=== PATIENT | male | born 1995 | race American Indian/Alaskan Native ===

== ENCOUNTER → 2016-11-06 | Outpatient (CLI) | payer OTHER ==
--- NOTE | 2016-11-06 16:21 | CR ---
EXAMINATION: Left knee HISTORY: Fall COMPARISON: None TECHNIQUE: 3 views FINDINGS/IMPRESSION: There is no acute osseous abnormality, dislocation, or fracture identified. Bon e mineralization and joint spaces appear normal. Noted joint effusion or soft tissue swelling.
--- NOTE | 2016-11-07 10:20 | CR ---
EXAMINATION: Left foot and left ankle HISTORY: Fall COMPARISON: 09/12/2016 TECHNIQUE: 2 views of the left ankle and 3 views of the left foot FINDINGS: There is no acute osseous subglottic, dislocation, or fracture identified. Bone mineraliza tion and joint spaces appear preserved. Mild soft tissue swelling is noted over the lateral malleolu s. Ankle mortise and talar dome appear intact. IMPRESSION: Soft tissue swelling without an acute osseous abnormality.
== END ==
LOC: MW.CHRC 15:38
PROVIDERS: ATTEND Family Medicine
DX: W19.XXXA Unspecified fall, initial encounter (principal); M79.89 Other specified soft tissue disorders
CPT/HCPCS: 73562-26-LT; 73562-LT; 73600-26-LT; 73600-LT; 73630-26-LT; 73630-LT

== ENCOUNTER → 2016-12-23 | Outpatient (CLI) | payer OTHER ==
--- NOTE | 2016-12-23 17:22 | CR ---
EXAMINATION: Left knee HISTORY: Injury COMPARISON: 11/06/2016 TECHNIQUE: 3 views FINDINGS/IMPRESSION: There is no acute osseous abnormality, dislocation, or fracture identified. Bon e mineralization and joint spaces appear normal. No soft tissue swelling or joint effusion.
--- NOTE | 2016-12-24 08:55 | CR ---
EXAMINATION: Left ankle HISTORY: Injury COMPARISON: 11/20/2016 TECHNIQUE: 3 views FINDINGS/IMPRESSION: Again noted is a tiny ossific density along the posterior aspect of the talus, possibly a small avulsion injury. Subchondral cystic changes noted within the anterior aspect of the tibial plafond. Otherwise the visualized osseous structures appear preserved.
== END ==
LOC: MW.CHRC 13:34
PROVIDERS: ATTEND Family Medicine
DX: T14.90 Injury, unspecified (principal); M89.8X7 Other specified disorders of bone, ankle and foot
CPT/HCPCS: 73562-26-LT; 73562-LT; 73610-26-LT; 73610-LT

== ENCOUNTER 2016-12-27 11:03 | Emergency (ER) | payer OTHER ==
[2016-12-27 11:25] VITALS: BP 141/94
--- NOTE | 2016-12-27 11:58 | EDM.PDOC ---
ED HPI GENERAL MEDICAL PROBLEM - General Chief Complaint: Lower Extremity Injury/Pain Stated Complaint: RIGHT FOOT PAIN Time Seen by Provider: 12/27/16 11:15 Source of Information: Reports: Patient History Limitations: Reports: No Limitations - History of Present Illness INITIAL COMMENTS - FREE TEXT/NARRATIVE: HISTORY AND PHYSICAL: History of present illness: [Patient is well known to this emergency room. He requests a left ankle brace. He states that he has a chip fracture identified on x-ray by Dr. Calhoun earlier this week. He has been wearing an Freeman wrap and engaging in normal activities. He has not been taking it easy or elevating or resting his leg. He said he just took a load of garbage to the local landfill with his landlord and he is now having increased pain. Has pain to his left posterior lateral malleolus with some burning up into his lower leg. Chart review shows numerous ER visits in 2017 for L ankle pain. ] Review of systems: As per history of present illness and below otherwise all systems reviewed and negative. Past medical history: As per history of present illness and as reviewed below otherwise noncontributory. Surgical history: As per history of present illness and as reviewed below otherwise noncontributory. Social history: No reported history of drug or alcohol abuse. Family history: As per history of present illness and as reviewed below otherwise noncontributory. Physical exam: HEENT: Atraumatic, normocephalic. Extremities: Atraumatic in appearance. Pedal pulses are 2+. No ecchymosis or edema noted. negative for cords or calf pain. Neurovascular unremarkable. Neuro: Awake, alert, oriented. Motor and sensory unremarkable throughout. Exam nonfocal. Diagnostics: [L ankle x-ray] Impression: [L ankle pain] Plan: [Pt requests medication for pain. He is offered Tylenol, which he agrees to. Examiner returns to the exam room to give x-ray results and discuss treatment plan, patient has left the ER. ] Definitive disposition and diagnosis as appropriate pending reevaluation and review of above. left foot Pain Score (Numeric/FACES): 7 - Related Data Allergies Allergy/AdvReac Type Severity Reaction Status Date / Time ibuprofen Allergy Hives Verified 12/27/16 11:12 ketorolac [From Toradol] Allergy Difficulty Verified 12/27/16 11:12 Breathing ketorolac tromethamine Allergy Shortness Verified 12/27/16 11:12 [From Toradol] of Breath Home Meds: Home Meds traMADol [Ultram] 1 tab PO TID 12/27/16 [History] Past Medical History - Past Health History Medical/Surgical History: Denies Medical/Surgical History HEENT History: Reports: None Cardiovascular History: Reports: None Respiratory History: Reports: None Gastrointestinal History: Reports: None Genitourinary History: Reports: None Musculoskeletal History: Reports: None Other Musculoskeletal History: fibula fracture,left Neurological History: Reports: None Psychiatric History: Reports: None Endocrine/Metabolic History: Reports: None Hematologic History: Reports: None Immunologic History: Reports: None Oncologic (Cancer) History: Reports: None Dermatologic History: Reports: None - Infectious Disease History Infectious Disease History: Reports: None - Past Surgical History HEENT Surgical History: Reports: None, Oral Surgery Social & Family History - Family History Family Medical History: Noncontributory - Tobacco Use Smoking Status *Q: Current Every Day Smoker Years of Tobacco use: 4 Packs/Tins Daily: 1 Second Hand Smoke Exposure: No - Caffeine Use Caffeine Use: Reports: Coffee Caffeine Use Comment: 2drinks/day - Alcohol Use Days Per Week of Alcohol Use: 0 - Recreational Drug Use Recreational Drug Use: No Review of Systems - Review of Systems Review Of Systems: ROS reveals no pertinent complaints other than HPI. Trauma Exam - Physical Exam Exam: See Below Course - Vital Signs Last Recorded V/S: Last Vital Signs Temp 98 F 12/27/16 11:13 Pulse 89 12/27/16 11:13 Resp 16 12/27/16 11:13 BP 141/94 H 12/27/16 11:13 Pulse Ox 98 12/27/16 11:13 - Orders/Labs/Meds Orders: Active Orders 24 hr Category Date Time Status Ankle Min 3V Lt [CR] Stat Exams 12/27/16 11:20 Taken Meds: Medications Discontinued Medications Generic Name Dose Route Start Last Admin Trade Name Freq PRN Reason Stop Dose Admin Acetaminophen 650 mg 12/27/16 12:04 Tylenol PO 12/27/16 12:05 NOW ONE Departure - Departure Time of Disposition: 12:15 Disposition: Eloped 07 Clinical Impression: Left ankle pain Qualifiers: Chronicity: unspecified Qualified Code(s): M25.572 - Pain in left ankle and joints of left foot - Discharge Information Forms: ED Department Discharge - My Orders Last 24 Hours: My Active Orders 12/27/16 11:20 Ankle Min 3V Lt [CR] Stat - Assessment/Plan Last 24 Hours: My Active Orders 12/27/16 11:20 Ankle Min 3V Lt [CR] Stat
[2016-12-27] MEDS ORDERED: Acetaminophen 325 MG Tab PO ONE (12:04)
--- NOTE | 2016-12-29 14:50 | CR ---
EXAM DATE: 12/27/16 PATIENT'S AGE: 21 Patient: LINDA COTA Facility: [place], [place] Site . Site : 1995 Study: XRay Extremity Left ankle [id number]/13/2017 11:41:30 AM Ordering Physician: Doctor Calderon Final Report: HISTORY: Left ankle pain. TECHNIQUE: Three views of the left ankle. COMPARISON: 12/23/2016. FINDINGS: There is no acute fracture. Ankle mortise is symmetric. Joint spaces are maintained. No malalignment. No radiopaque foreign body or abnormal soft tissue gas. IMPRESSION: No acute fracture or malalignment. Dictated by Matry Encarnacion MD @ 12/27/2016 12:05:02 PM Dictated by: Marty Encarnacion MD @ 12/27/2016 12:05:09 (Electronic Signature) Report Signed by Proxy. SUKI
== END 2016-12-27 12:16 | disposition left against medical advice (07) ==
LOC: MW.ED 11:03
DX: M25.572 Pain in left ankle and joints of left foot (principal); F17.210 Nicotine dependence, cigarettes, uncomplicated; Z88.6 Allergy status to analgesic agent
CPT/HCPCS: 73610-26-LT; 73610-LT; 99282; 99283

== ENCOUNTER → 2017-01-01 | Outpatient (CLI) | payer OTHER ==
--- NOTE | 2017-01-02 08:57 | MR ---
EXAMINATION: MRI of the left ankle HISTORY: Pain COMPARISON: Radiographs dated 12/27/2016 TECHNIQUE: Multiplanar and multisequence images obtained through the left ankle without contrast. FINDINGS: The Achilles tendon appears normal in configuration. The anterior talofibular ligament sylvia ears thickened and indistinct without notable surrounding edema. The posterior talofibular and tibio fibular ligaments are intact. Anterior tibiofibular and calcaneofibular ligaments are also preserved . The peroneus brevis and longus tendons appear normal. The remaining flexor and extensor tendons si gnal characteristics are normal. No there is mild subchondral edema within the medial malleolus roland g the tibiotalar articular surface. The subtalar joint appears normal. Otherwise remaining bone toña ow signal characteristics are normal. IMPRESSION: 1. The anterior talofibular ligament is indistinct, without surrounding edema, likely an old injury. 2. Mild subchondral edema within the medial malleolus.
== END ==
LOC: MW.MRI 14:10
PROVIDERS: ATTEND Family Medicine
DX: M25.572 Pain in left ankle and joints of left foot (principal); R60.9 Edema, unspecified
CPT/HCPCS: 73721-26-LT; 73721-LT

== ENCOUNTER 2018-01-20 15:11 | Emergency (ER) | payer OTHER ==
[2018-01-20 15:45] VITALS: BP 154/101
[2018-01-20] MEDS ORDERED: Ondansetron 4 MG Tab.DIS PO ONE (16:15)
--- NOTE | 2018-01-20 16:20 | EDM.PDOC ---
ED HPI GENERAL MEDICAL PROBLEM - General Chief Complaint: Fever Stated Complaint: KNEE PAIN/FEVER Time Seen by Provider: 01/20/18 16:05 Source of Information: Reports: Patient History Limitations: Reports: No Limitations - History of Present Illness INITIAL COMMENTS - FREE TEXT/NARRATIVE: HISTORY AND PHYSICAL: History of present illness: [Pt comes to the emergency room complaining of right knee pain and swelling. States that he was standing on a ladder yesterday when his leg slipped, causing him to hit his right medina against the rung of the ladder and hit his right knee against the wall. He is complaining of increased pain, redness and swelling to his right knee as well as a laceration to his right anterior medina. He has not taken any medication for his symptoms. Has had increased pain that is unrelieved tramadol. He denies fever and chills, chest pain shortness of breath and difficulty breathing. Denies abdominal pain. Has one episode of emesis in the emergency room and complains of mild nausea. No calf pain. No pain to his right ankle or foot. Follows regularly with podiatry for tendon injury to left ankle. He has no other complaints or concerns at this time. ] Review of systems: As per history of present illness and below otherwise all systems reviewed and negative. Past medical history: As per history of present illness and as reviewed below otherwise noncontributory. Surgical history: As per history of present illness and as reviewed below otherwise noncontributory. Social history: No reported history of drug or alcohol abuse. Family history: As per history of present illness and as reviewed below otherwise noncontributory. Physical exam: HEENT: Atraumatic, normocephalic. Oral mucous membranes are pink and moist. Lungs: Clear to auscultation, breath sounds equal bilaterally. Heart: S1S2, regular, negative for clicks, rubs, or JVD. Extremities: Right knee appears mildly swollen and enlarged when compared with the left. Area of warmth and redness to superior patella of right knee. No calf pain with palpation. No calf or ankle pain is appreciated. 3 cm superficial abrasion to right anterior lower leg with mild surrounding erythema. No swelling to the lower leg. Left leg appears atraumatic other than left ankle brace. Neurovascular unremarkable. Neuro: Awake, alert, oriented. Motor and sensory unremarkable throughout. Exam nonfocal. Psych: Is alert and oriented, makes good eye contact. He appears anxious throughout examination. Diagnostics: [CBC, CMP, sedimentation rate, right knee x-ray] Therapeutics: [Zofran 4 mg by mouth] Impression: [Cellulitis right knee] Plan: [Discussed with patient that his right knee x-ray shows no abnormalities. White blood cell count is mildly elevated at 14.7, ESR is 1. CMP is unremarkable. Rx written for cephalexin 500 mg (#40) si by mouth 4 times daily until all taken , 0 refills, hydrocodone 5/325 mg take one by mouth every 6-8 hours as needed for pain 0 refills. Follow-up with PCP, strict return precautions reviewed. He is in agreement with today's plan.] Definitive disposition and diagnosis as appropriate pending reevaluation and review of above. right knee Pain Score (Numeric/FACES): 7 - Related Data Allergies Allergy/AdvReac Type Severity Reaction Status Date / Time ibuprofen Allergy Hives Verified 01/20/18 15:33 ketorolac [From Toradol] Allergy Difficulty Verified 01/20/18 15:33 Breathing ketorolac tromethamine Allergy Shortness Verified 01/20/18 15:33 [From Toradol] of Breath Home Meds: Home Meds Gabapentin [Gralise] 600 mg PO BID 01/20/18 [History] traMADol HCl [Tramadol HCl] 150 mg PO BID 01/20/18 [History] Past Medical History - Past Health History Medical/Surgical History: Denies Medical/Surgical History HEENT History: Reports: None Cardiovascular History: Reports: None Respiratory History: Reports: None Gastrointestinal History: Reports: None Genitourinary History: Reports: None Musculoskeletal History: Reports: None, Back Pain, Chronic Other Musculoskeletal History: fibula fracture,left Neurological History: Reports: None Psychiatric History: Reports: None Endocrine/Metabolic History: Reports: None Hematologic History: Reports: None Immunologic History: Reports: None Oncologic (Cancer) History: Reports: None Dermatologic History: Reports: None - Infectious Disease History Infectious Disease History: Reports: None - Past Surgical History HEENT Surgical History: Reports: None, Oral Surgery Musculoskeletal Surgical History: Reports: Other (See Below) Other Musculoskeletal Surgeries/Procedures:: ankle surgery Social & Family History - Family History Family Medical History: Noncontributory - Tobacco Use Smoking Status *Q: Light Tobacco Smoker Years of Tobacco use: 5 Packs/Tins Daily: 0.1 - Caffeine Use Caffeine Use: Reports: Coffee Caffeine Use Comment: 2drinks/day - Recreational Drug Use Recreational Drug Use: No ED ROS GENERAL - Review of Systems Review Of Systems: ROS reveals no pertinent complaints other than HPI. ED EXAM, SEPSIS - Physical Exam Exam: See Below Course - Vital Signs Last Recorded V/S: Last Vital Signs Temp 100.2 F 01/20/18 15:34 Pulse 98 01/20/18 15:34 Resp 18 01/20/18 15:34 BP 154/101 H 01/20/18 15:34 Pulse Ox 95 01/20/18 15:34 - Orders/Labs/Meds Orders: Active Orders 24 hr Category Date Time Status Knee 3V Rt [CR] Stat Exams 01/20/18 16:14 Taken CULTURE BLOOD [BC] Stat Lab 01/20/18 17:03 Received CULTURE BLOOD [BC] Stat Lab 01/20/18 17:15 Received Blood Culture x2 Reflex Set [OM.PC] Stat Oth 01/20/18 16:50 Ordered Labs: Laboratory Tests 01/20/18 01/20/18 Range/Units 16:22 16:22 WBC 14.74 H (4.0-11.0) K/uL RBC 5.14 (4.50-5.90) M/uL Hgb 15.6 (13.0-17.0) g/dL Hct 45.4 (38.0-50.0) % MCV 88.3 (80.0-98.0) fL MCH 30.4 (27.0-32.0) pg MCHC 34.4 (31.0-37.0) g/dL RDW Std Deviation 41.9 (28.0-62.0) fl RDW Coeff of Ofelia 13 (11.0-15.0) % Plt Count 341 (150-400) K/uL MPV 9.50 (7.40-12.00) fL Neut % (Auto) 71.2 (48.0-80.0) % Lymph % (Auto) 18.9 (16.0-40.0) % [place] % (Auto) 9.5 (0.0-15.0) % Eos % (Auto) 0.3 (0.0-7.0) % Baso % (Auto) 0.1 (0.0-1.5) % Neut # (Auto) 10.5 H (1.4-5.7) K/uL Lymph # (Auto) 2.8 H (0.6-2.4) K/uL [place] # (Auto) 1.4 H (0.0-0.8) K/uL Eos # (Auto) 0.1 (0.0-0.7) K/uL Baso # (Auto) 0.0 (0.0-0.1) K/uL Nucleated RBC % 0.0 /100WBC Nucleated RBCs # 0 K/uL ESR 1 (0-14) mm/hr Sodium 138 (136-148) mmol/L Potassium 3.6 (3.5-5.1) mmol/L Chloride 102 (98-107) mmol/L Carbon Dioxide 24.9 (21.0-32.0) mmol/L BUN 12 (7.0-18.0) mg/dL Creatinine 1.2 (0.8-1.3) mg/dL Est Cr Clr Drug Dosing 101.97 mL/min Estimated GFR (MDRD) > 60.0 ml/min Glucose 112 H (74-106) mg/dL Calcium 8.9 (8.5-10.1) mg/dL Total Bilirubin 0.3 (0.2-1.0) mg/dL AST 19 (15-37) IU/L ALT 56 (14-63) IU/L Alkaline Phosphatase 107 (46-116) U/L Total Protein 8.0 (6.4-8.2) g/dL Albumin 4.4 (3.4-5.0) g/dL Globulin 3.6 H (2.0-3.5) g/dL Albumin/Globulin Ratio 1.2 L (1.3-2.8) Meds: Medications Discontinued Medications Generic Name Dose Route Start Last Admin Trade Name Freq PRN Reason Stop Dose Admin Ondansetron HCl 4 mg 01/20/18 16:15 01/20/18 16:27 Zofran Odt PO 01/20/18 16:16 4 mg ONETIME ONE Administration Departure - Departure Time of Disposition: 17:40 Disposition: Home, Self-Care 01 Condition: Good Clinical Impression: Cellulitis - Discharge Information Referrals: Ancelmo Astudillo MD [Primary Care Provider] - Forms: ED Department Discharge Additional Instructions: The following information is given to patients seen in the emergency department who are being discharged to home. This information is to outline your options for follow-up care. We provide all patients seen in our emergency department with a follow-up referral. The need for follow-up, as well as the timing and circumstances, are variable depending upon the specifics of your emergency department visit. If you don't have a primary care physician on staff, we will provide you with a referral. We always advise you to contact your personal physician following an emergency department visit to inform them of the circumstance of the visit and for follow-up with them and/or the need for any referrals to a consulting specialist. The emergency department will also refer you to a specialist when appropriate. This referral assures that you have the opportunity for follow-up care with a specialist. All of these measure are taken in an effort to provide you with optimal care, which includes your follow-up. Under all circumstances we always encourage you to contact your private physician who remains a resource for coordinating your care. When calling for follow-up care, please make the office aware that this follow-up is from your recent emergency room visit. If for any reason you are refused follow-up, please contact the [facility] emergency department at and asked to speak to the emergency department charge nurse. [facility] [address] [place] [id number] Follow-up with your local primary care provider at the clinic listed above in 48 -72 hours. Take Antibiotics as prescribed. Return to ER as needed as discussed. - My Orders Last 24 Hours: My Active Orders 01/20/18 16:14 Knee 3V Rt [CR] Stat 01/20/18 16:50 Blood Culture x2 Reflex Set [OM.PC] Stat 01/20/18 17:03 CULTURE BLOOD [BC] Stat 01/20/18 17:15 CULTURE BLOOD [BC] Stat - Assessment/Plan Last 24 Hours: My Active Orders 01/20/18 16:14 Knee 3V Rt [CR] Stat 01/20/18 16:50 Blood Culture x2 Reflex Set [OM.PC] Stat 01/20/18 17:03 CULTURE BLOOD [BC] Stat 01/20/18 17:15 CULTURE BLOOD [BC] Stat
[2018-01-20 17:20] LABS: CHLORIDE,CL 102 mmol/L (98-107); SODIUM,NA 138 mmol/L (136-148)
--- NOTE | 2018-01-21 09:02 | CR ---
EXAM DATE: 01/20/18 PATIENT'S AGE: 22 Patient: LINDA COTA Facility: [place], [place] Site . Site : 1995 Study: XRay Knee Right [id number] 4:38:47 PM Ordering Physician: Doctor Calderon Final Report: Indication: Pain Technique: Three views right knee Comparison: December 25, 2017 Findings: Bones: Alignment is normal. No fractures or bone lesions. Joint spaces: Unremarkable. Soft tissues: Unremarkable. Impression: Negative. Dictated by Fatimah Cruz MD @ Jan 20 2018 4:52PM (Electronic Signature) Report Signed by Proxy. SUKI
== END 2018-01-20 18:37 | disposition home or self-care (01) ==
LOC: MW.ED 15:11
DX: S80.811A Abrasion, right lower leg, initial encounter (principal); L03.115 Cellulitis of right lower limb; Z88.6 Allergy status to analgesic agent; Z88.5 Allergy status to narcotic agent; Z79.899 Other long term (current) drug therapy; F17.210 Nicotine dependence, cigarettes, uncomplicated; W11.XXXA Fall on and from ladder, initial encounter
CPT/HCPCS: 36415; 73562; 80053; 85025; 85652; 87040; 99283; A9270

== ENCOUNTER 2018-02-06 21:00 | Emergency (ER) | payer OTHER ==
--- NOTE | 2018-02-06 21:21 | EDM.PDOC ---
ED HPI GENERAL MEDICAL PROBLEM - General Chief Complaint: Lower Extremity Injury/Pain Stated Complaint: SLIPPED DOWN Time Seen by Provider: 02/06/18 21:10 - History of Present Illness INITIAL COMMENTS - FREE TEXT/NARRATIVE: HISTORY AND PHYSICAL: History of present illness: The patient is a 22-year-old male who has a history of left ankle surgery in November at in [place] for some tendon injury and presents with complaints of pain to his left ankle after he rolled it approximately 3-1/2 hours ago. The patient said he was in his usual state of good health with no systemic complaints when this occurred. He said that when he rolled that he did not fall to the ground hitting his head or pass out and has no head neck or back pain and no proximal left leg knee hip or thigh pain. The patient took Tylenol only as he has an allergy to ibuprofen. The patient has no numbness weakness in the foot and has no discrete foot or toe pain. The patient tells me that he had a surgery at in [place] and for follow-up has been going there and has not connected with any of our subspecialist here. He does follow in our family practice clinic Review of systems: As per history of present illness and below otherwise all systems reviewed and negative. Past medical history: As per history of present illness and as reviewed below otherwise noncontributory. Surgical history: As per history of present illness and as reviewed below otherwise noncontributory. Social history: No reported history of drug or alcohol abuse. Family history: As per history of present illness and as reviewed below otherwise noncontributory. Physical exam: General: Well-developed well-nourished overweight male who is nontoxic and vital signs are noted by me HEENT: Atraumatic, normocephalic, negative for conjunctival pallor or scleral icterus, mucous membranes moist, throat clear, neck supple, nontender, trachea midline. Lungs: Clear to auscultation, breath sounds equal bilaterally, chest nontender. Heart: S1S2, regular rate and rhythm no overt murmurs Abdomen: Soft, nondistended, nontender. NABS Pelvis: Stable nontender. No lateral hip tenderness on the left Genitourinary: Deferred. Rectal: Deferred. Extremities: Atraumatic appearing with full range of motion of all extremities with the exception of the left ankle where there is some diffuse soft tissue swelling and tenderness at the lateral aspect of the ankle. There is no metatarsal tenderness no tenderness of the talus or the calcaneus and no distal tenderness to the toes. Pulses are intact and cap refill is normal. There is no proximal tib-fib tenderness knee tenderness thigh or hip tenderness or deformities. The legs are, negative for cords or calf pain. Neurovascular unremarkable. Neuro: Awake, alert, oriented. Cranial nerves II through XII unremarkable. Cerebellum unremarkable. Motor and sensory unremarkable throughout. Exam nonfocal. The patient can dorsi and plantar flex the foot Diagnostics: X-ray left ankle Therapeutics: Patient tells me he does have a Cam boot and crutches at home I've advised the patient to use his Cam boot and crutches until he can be followed up in our clinic. I will give him [facility] for some tramadol for pain as he cannot take NSAIDs. I will advise him to call the clinic and schedule follow-up appointment Impression: Left ankle injury/sprain, with history of prior surgery Definitive disposition and diagnosis as appropriate pending reevaluation and review of above. left ankle Pain Score (Numeric/FACES): 7 - Related Data Allergies Allergy/AdvReac Type Severity Reaction Status Date / Time ibuprofen Allergy Hives Verified 02/06/18 21:08 ketorolac [From Toradol] Allergy Difficulty Verified 02/06/18 21:08 Breathing ketorolac tromethamine Allergy Shortness Verified 02/06/18 21:08 [From Toradol] of Breath Home Meds: Home Meds Gabapentin [Gralise] 600 mg PO BID 01/20/18 [History] Past Medical History - Past Health History Medical/Surgical History: Denies Medical/Surgical History HEENT History: Reports: None Cardiovascular History: Reports: None Respiratory History: Reports: None Gastrointestinal History: Reports: None Genitourinary History: Reports: None Musculoskeletal History: Reports: None, Back Pain, Chronic Other Musculoskeletal History: fibula fracture,left Neurological History: Reports: None Psychiatric History: Reports: None Endocrine/Metabolic History: Reports: None Hematologic History: Reports: None Immunologic History: Reports: None Oncologic (Cancer) History: Reports: None Dermatologic History: Reports: None - Infectious Disease History Infectious Disease History: Reports: None - Past Surgical History HEENT Surgical History: Reports: Oral Surgery Musculoskeletal Surgical History: Reports: Other (See Below) Other Musculoskeletal Surgeries/Procedures:: ankle surgery Social & Family History - Family History Family Medical History: Noncontributory - Tobacco Use Smoking Status *Q: Current Every Day Smoker Years of Tobacco use: 4 Packs/Tins Daily: 0.3 - Caffeine Use Caffeine Use: Reports: Coffee Caffeine Use Comment: 2drinks/day - Recreational Drug Use Recreational Drug Use: No Review of Systems - Review of Systems Review Of Systems: ROS reveals no pertinent complaints other than HPI. ED EXAM, GENERAL - Physical Exam Exam: See Below (See dictation) Course - Vital Signs Last Recorded V/S: Last Vital Signs Temp 37.2 C 02/06/18 21:09 Pulse 102 H 02/06/18 21:09 Resp 18 02/06/18 21:09 BP 154/101 H 02/06/18 21:09 Pulse Ox 96 02/06/18 21:09 - Orders/Labs/Meds Orders: Active Orders 24 hr Category Date Time Status Ankle Min 3V Lt [CR] Stat Exams 02/06/18 21:17 Taken Departure - Departure Time of Disposition: 22:56 Disposition: Home, Self-Care 01 Condition: Good Clinical Impression: Injury of left ankle Qualifiers: Encounter type: subsequent encounter Qualified Code(s): S99.912D - Unspecified injury of left ankle, subsequent encounter - Discharge Information Referrals: PCP,None [Primary Care Provider] - Forms: ED Department Discharge Additional Instructions: The following information is given to patients seen in the emergency department who are being discharged to home. This information is to outline your options for follow-up care. We provide all patients seen in our emergency department with a follow-up referral. The need for follow-up, as well as the timing and circumstances, are variable depending upon the specifics of your emergency department visit. If you don't have a primary care physician on staff, we will provide you with a referral. We always advise you to contact your personal physician following an emergency department visit to inform them of the circumstance of the visit and for follow-up with them and/or the need for any referrals to a consulting specialist. The emergency department will also refer you to a specialist when appropriate. This referral assures that you have the opportunity for followup care with a specialist. All of these measure are taken in an effort to provide you with optimal care, which includes your followup. Under all circumstances we always encourage you to contact your private physician who remains a resource for coordinating your care. When calling for followup care, please make the office aware that this follow-up is from your recent emergency room visit. If for any reason you are refused follow-up, please contact the [facility] emergency department at and ask to speak to the emergency department charge nurse. [facility]--Orthopedic clinic Professional Building [address] [place] [address] [address] [place] [address] [facility]- Internal Medicine and [facility] [address] [place] [id number] Ice and elevate the area as much as possible and wear your cam walking boot and use crutches at all times until you're followed up in the clinic. Please call and follow up in orthopedic clinic or with your provider at [facility] in [place]. Please use [id number] Tylenol for pain or at the stronger medications as needed and as prescribed. Return to ER as needed and as discussed. You have been given tramadol from [facility] - My Orders Last 24 Hours: My Active Orders 02/06/18 21:17 Ankle Min 3V Lt [CR] Stat - Assessment/Plan Last 24 Hours: My Active Orders 02/06/18 21:17 Ankle Min 3V Lt [CR] Stat
[2018-02-06 23:06] VITALS: BP 168/91
--- NOTE | 2018-02-08 14:28 | CR ---
EXAM DATE: 02/06/18 PATIENT'S AGE: 22 Patient: LINDA COTA Facility: [place], [place] Site . Site : 1995 Study: XRay Extremity Left ankle [id number] 9:44:33 PM Ordering Physician: Branden Toledo Final Report: INDICATION: Slipped on Modic twisted ankle. TECHNIQUE: Three views left ankle. FINDINGS: Mild soft tissue swelling left ankle. Small lucency in the calcaneus. No acute fracture or dislocation in left ankle. Left ankle otherwise negative. Dictated by Rony Stark MD @ Feb 06 2018 10:53PM (Electronic Signature) Report Signed by Proxy. SUKI
== END 2018-02-06 23:08 | disposition home or self-care (01) ==
LOC: MW.ED 21:00
DX: S93.402D Sprain of unspecified ligament of left ankle, subsequent encounter (principal); F17.210 Nicotine dependence, cigarettes, uncomplicated; Z88.6 Allergy status to analgesic agent; Z88.1 Allergy status to other antibiotic agents; Z98.890 Other specified postprocedural states; X50.9XXA Other and unspecified overexertion or strenuous movements or postures, initial encounter
CPT/HCPCS: 73610-26-LT; 73610-LT; 99283

== ENCOUNTER 2018-02-28 11:17 | Emergency (ER) | payer OTHER ==
--- NOTE | 2018-02-28 12:05 | EDM.PDOC ---
ED HPI GENERAL MEDICAL PROBLEM - General Chief Complaint: General Stated Complaint: Rx NEEDED Time Seen by Provider: 02/28/18 12:02 Source of Information: Reports: Patient History Limitations: Reports: No Limitations - History of Present Illness INITIAL COMMENTS - FREE TEXT/NARRATIVE: HISTORY AND PHYSICAL: History of present illness: [Nicholas is a 22-year-old male here requesting a refill on his gabapentin. He states that he has been out of it for 4 days. He takes 600mg BID for his back pain. He states he is feeling a bit anxious without it. He tried to get in to his PCP Dr. Astudillo but was unable to get an appt. until 03/18. He denies any fevers, chills, headache, abdominal pain, nausea, vomiting, diarrhea. ] Review of systems: As per history of present illness and below otherwise all systems reviewed and negative. Past medical history: As per history of present illness and as reviewed below otherwise noncontributory. Surgical history: As per history of present illness and as reviewed below otherwise noncontributory. Social history: No reported history of drug or alcohol abuse. Family history: As per history of present illness and as reviewed below otherwise noncontributory. Physical exam: General: Patient sitting comfortably in no acute distress HEENT: Atraumatic, normocephalic, pupils reactive, negative for conjunctival pallor or scleral icterus Lungs: Clear to auscultation, breath sounds equal bilaterally Heart: S1S2, regular, negative for clicks, rubs, or JVD. Neuro: Awake, alert, oriented. Cranial nerves II through XII unremarkable. Cerebellum unremarkable. Motor and sensory unremarkable throughout. Exam nonfocal. Notes: Advised patient to call clinic tomorrow morning to get further refills. Diagnostics: [] Therapeutics: [Gabapentin] Impression: [Med refill, back pain] Plan: [#1 Follow up with primary care provider for further refills #2 Return to ED as needed as discussed] Definitive disposition and diagnosis as appropriate pending reevaluation and review of above. Back Pain Score (Numeric/FACES): 5 - Related Data Allergies Allergy/AdvReac Type Severity Reaction Status Date / Time ibuprofen Allergy Hives Verified 02/28/18 11:47 ketorolac [From Toradol] Allergy Difficulty Verified 02/28/18 11:47 Breathing Home Meds: Home Meds Gabapentin [Gralise] 1,200 mg PO BID 01/20/18 [History] Gabapentin [Neurontin] 300 mg PO BID #10 capsule 02/28/18 [Rx] traMADol [Ultram] 50 mg PO BID 02/28/18 [History] Past Medical History - Past Health History Medical/Surgical History: Denies Medical/Surgical History HEENT History: Reports: None Cardiovascular History: Reports: None Respiratory History: Reports: None Gastrointestinal History: Reports: None Genitourinary History: Reports: None Musculoskeletal History: Reports: None, Back Pain, Chronic Other Musculoskeletal History: fibula fracture,left Neurological History: Reports: None Psychiatric History: Reports: None Endocrine/Metabolic History: Reports: None Hematologic History: Reports: None Immunologic History: Reports: None Oncologic (Cancer) History: Reports: None Dermatologic History: Reports: None - Infectious Disease History Infectious Disease History: Reports: None - Past Surgical History HEENT Surgical History: Reports: Oral Surgery Musculoskeletal Surgical History: Reports: Other (See Below) Other Musculoskeletal Surgeries/Procedures:: ankle surgery Social & Family History - Family History Family Medical History: Noncontributory - Tobacco Use Smoking Status *Q: Former Smoker Used Tobacco, but Quit: Yes Month/Year Tobacco Last Used: 09/17/2017 - Caffeine Use Caffeine Use: Reports: Coffee Caffeine Use Comment: 2drinks/day - Recreational Drug Use Recreational Drug Use: No ED ROS GENERAL - Review of Systems Review Of Systems: ROS reveals no pertinent complaints other than HPI. ED EXAM, GENERAL - Physical Exam Exam: See Below (See dictation) Course - Vital Signs Last Recorded V/S: Last Vital Signs Temp 36.0 C 02/28/18 11:49 Pulse 65 02/28/18 11:49 Resp 18 02/28/18 11:49 BP 153/92 H 02/28/18 11:49 Pulse Ox 98 02/28/18 11:49 Departure - Departure Time of Disposition: 12:12 Disposition: Home, Self-Care 01 Condition: Good Clinical Impression: Medication refill, Back pain - Discharge Information Prescriptions: Gabapentin [Neurontin] 300 mg PO BID #10 capsule Referrals: PCP,None [Primary Care Provider] - Forms: ED Department Discharge Additional Instructions: The following information is given to patients seen in the emergency department who are being discharged to home. This information is to outline your options for follow-up care. We provide all patients seen in our emergency department with a follow-up referral. The need for follow-up, as well as the timing and circumstances, are variable depending upon the specifics of your emergency department visit. If you don't have a primary care physician on staff, we will provide you with a referral. We always advise you to contact your personal physician following an emergency department visit to inform them of the circumstance of the visit and for follow-up with them and/or the need for any referrals to a consulting specialist. The emergency department will also refer you to a specialist when appropriate. This referral assures that you have the opportunity for follow-up care with a specialist. All of these measure are taken in an effort to provide you with optimal care, which includes your follow-up. Under all circumstances we always encourage you to contact your private physician who remains a resource for coordinating your care. When calling for follow-up care, please make the office aware that this follow-up is from your recent emergency room visit. If for any reason you are refused follow-up, please contact the [facility] Emergency Department at and asked to speak to the emergency department charge nurse. [facility] [address] [place] [id number] #1 Follow up with primary care provider for further refills #2 Return to ED as needed as discussed
[2018-02-28 12:23] VITALS: BP 153/92
== END 2018-02-28 12:26 | disposition home or self-care (01) ==
LOC: MW.ED 11:17
DX: Z76.1 Encounter for health supervision and care of foundling (principal); M54.9 Dorsalgia, unspecified; Z88.6 Allergy status to analgesic agent; Z87.891 Personal history of nicotine dependence
CPT/HCPCS: 99281

== ENCOUNTER 2019-10-15 19:03 | Emergency (ER) | payer OTHER ==
[2019-10-15] MEDS ORDERED: Sodium Chloride 0.9% 1,000 ML IV ONE (19:11)
--- NOTE | 2019-10-15 19:31 | EDM.PDOC ---
ED HPI GENERAL MEDICAL PROBLEM - General Chief Complaint: Neurological Problem Stated Complaint: SUIZURE Time Seen by Provider: 10/15/19 19:26 Source of Information: Reports: Patient History Limitations: Reports: No Limitations - History of Present Illness INITIAL COMMENTS - FREE TEXT/NARRATIVE: 23-year-old male who presents the emergency room with a chief complaint of level of consciousness. Patient admits to smoking some marijuana and passing out in his friend's car. States he woke up in an ambulance confused not knowing where he was. The patient denies chest pain, shortness of breath, abdominal pain, chills and fever. The patient is on no medication has no chronic diseases. Denies diabetes or hypertension. Evaluation patient is awake alert and confused. Is aware of time date and situation. Duration: Day(s): Location: Denies: Head, Face, Neck, Chest Improves with: Reports: None Worsens with: Reports: None Associated Symptoms: Reports: Weakness - Related Data Allergies Allergy/AdvReac Type Severity Reaction Status Date / Time ibuprofen Allergy Hives Verified 10/15/19 19:07 ketorolac [From Toradol] Allergy Difficulty Verified 10/15/19 19:07 Breathing Home Meds: Home Meds Gabapentin [Neurontin] 300 mg PO DAILY 10/15/19 [History] Past Medical History - Past Health History Medical/Surgical History: Denies Medical/Surgical History HEENT History: Reports: None Cardiovascular History: Reports: None Respiratory History: Reports: None Gastrointestinal History: Reports: None Genitourinary History: Reports: None Musculoskeletal History: Reports: None, Back Pain, Chronic Other Musculoskeletal History: fibula fracture,left Neurological History: Reports: None Psychiatric History: Reports: None Endocrine/Metabolic History: Reports: None Hematologic History: Reports: None Immunologic History: Reports: None Oncologic (Cancer) History: Reports: None Dermatologic History: Reports: None - Infectious Disease History Infectious Disease History: Reports: None - Past Surgical History HEENT Surgical History: Reports: Oral Surgery Musculoskeletal Surgical History: Reports: Other (See Below) Other Musculoskeletal Surgeries/Procedures:: ankle surgery Social & Family History - Family History Family Medical History: Noncontributory - Tobacco Use Smoking Status *Q: Current Every Day Smoker Years of Tobacco use: 6 Packs/Tins Daily: 1 - Caffeine Use Caffeine Use: Reports: Coffee Caffeine Use Comment: 2drinks/day - Recreational Drug Use Recreational Drug Use: No ED ROS GENERAL - Review of Systems Review Of Systems: See Below Constitutional: Reports: No Symptoms HEENT: Reports: No Symptoms Respiratory: Reports: No Symptoms Cardiovascular: Reports: No Symptoms Endocrine: Reports: No Symptoms GI/Abdominal: Reports: No Symptoms : Reports: No Symptoms Musculoskeletal: Reports: No Symptoms Skin: Reports: No Symptoms Neurological: Reports: Confusion Psychiatric: Reports: No Symptoms Hematologic/Lymphatic: Reports: No Symptoms Immunologic: Reports: No Symptoms - Physical Exam Exam: See Below Exam Limited By: No Limitations General Appearance: Alert, WD/WN, No Apparent Distress Eye Exam: Bilateral Eye: Normal Fundi, Normal Inspection Ears: Normal External Exam, Normal Canal, Normal TMs Nose: Normal Inspection, Normal Mucosa Throat/Mouth: Normal Inspection, Normal Lips Head Exam: Atraumatic, Normocephalic Neck: Normal Inspection Respiratory/Chest: No Respiratory Distress, Lungs Clear, No Accessory Muscle Use Cardiovascular: Normal Peripheral Pulses, Regular Rate, Rhythm GI/Abdominal: Normal Bowel Sounds (Male) Exam: Deferred Rectal (Males) Exam: Deferred Neuro Exam (Abbreviated): Alert, Oriented, CN II-XII Intact, Normal Cognition, Normal Reflexes, No Motor/Sensory Deficits Back Exam: Normal Inspection, Full Range of Motion Extremities: Normal Inspection, Normal Range of Motion, No Pedal Edema, Normal Capillary Refill Psychiatric: Normal Affect, Normal Mood Skin Exam: Warm, Intact, Normal Color Course - Vital Signs Text/Narrative:: This 23-year-old male who presented to the emergency room after being altered while smoking x1 has tested positive for marijuana and methamphetamines. All other labs are normal. Patient has been observed in the emergency room approximately 2 hours without any problems. We will discharge the patient to [place]/possibly [place] [facility]. With a diagnosis of illicit drug usage. The patient is medically cleared at this time Last Recorded V/S: Last Vital Signs Temp 98.1 F 10/15/19 19:08 Pulse 137 H 10/15/19 19:08 Resp 22 H 10/15/19 19:08 BP 187/98 H 10/15/19 19:08 Pulse Ox 93 L 10/15/19 19:08 - Orders/Labs/Meds Labs: Laboratory Tests 10/15/19 10/15/19 10/15/19 Range/Units 19:10 19:10 20:30 WBC 11.57 H (4.0-11.0) K/uL RBC 5.23 (4.50-5.90) M/uL Hgb 15.9 (13.0-17.0) g/dL Hct 46.9 (38.0-50.0) % MCV 89.7 (80.0-98.0) fL MCH 30.4 (27.0-32.0) pg MCHC 33.9 (31.0-37.0) g/dL RDW Std Deviation 42.7 (28.0-62.0) fl RDW Coeff of [place] 13 (11.0-15.0) % Plt Count 322 (150-400) K/uL MPV 9.20 (7.40-12.00) fL Neut % (Auto) 47.7 L (48.0-80.0) % Lymph % (Auto) 38.8 (16.0-40.0) % [place] % (Auto) 6.7 (0.0-15.0) % Eos % (Auto) 6.5 (0.0-7.0) % Baso % (Auto) 0.3 (0.0-1.5) % Neut # (Auto) 5.5 (1.4-5.7) K/uL Lymph # (Auto) 4.5 H (0.6-2.4) K/uL [place] # (Auto) 0.8 (0.0-0.8) K/uL Eos # (Auto) 0.8 H (0.0-0.7) K/uL Baso # (Auto) 0.0 (0.0-0.1) K/uL Nucleated RBC % 0.0 /100WBC Nucleated RBCs # 0 K/uL Sodium 142 (136-148) mmol/L Potassium 3.5 (3.5-5.1) mmol/L Chloride 103 (98-107) mmol/L Carbon Dioxide 23.0 (21.0-32.0) mmol/L BUN 12 (7.0-18.0) mg/dL Creatinine 1.2 (0.8-1.3) mg/dL Est Cr Clr Drug Dosing 101.10 mL/min Estimated GFR (MDRD) > 60.0 ml/min Glucose 105 (74-106) mg/dL Calcium 9.0 (8.5-10.1) mg/dL Total Bilirubin 0.4 (0.2-1.0) mg/dL AST 20 (15-37) IU/L ALT 38 (14-63) IU/L Alkaline Phosphatase 114 (46-116) U/L Total Protein 7.8 (6.4-8.2) g/dL Albumin 4.5 (3.4-5.0) g/dL Globulin 3.3 (2.6-4.0) g/dL Albumin/Globulin Ratio 1.4 (0.9-1.6) Urine Color YELLOW Urine Appearance CLEAR Urine pH 6.0 (5.0-8.0) Ur Specific [place] 1.015 (1.001-1.035) Urine Protein NEGATIVE (NEGATIVE) mg/dL Urine Glucose (UA) NEGATIVE (NEGATIVE) mg/dL Urine Ketones NEGATIVE (NEGATIVE) mg/dL Urine Occult Blood NEGATIVE (NEGATIVE) Urine Nitrite NEGATIVE (NEGATIVE) Urine Bilirubin NEGATIVE (NEGATIVE) Urine Urobilinogen 0.2 (<2.0) EU/dL Ur Leukocyte Esterase NEGATIVE (NEGATIVE) Urine Opiates Screen (NEGATIVE) Ur Oxycodone Screen (NEGATIVE) Urine Methadone Screen (NEGATIVE) Ur Barbiturates Screen (NEGATIVE) Ur Phencyclidine Scrn (NEGATIVE) Ur Amphetamine Screen (NEGATIVE) U Methamphetamines Scrn (NEGATIVE) U Benzodiazepines Scrn (NEGATIVE) U Cocaine Metab Screen (NEGATIVE) U Marijuana (THC) Screen (NEGATIVE) 10/15/19 Range/Units 20:30 WBC (4.0-11.0) K/uL RBC (4.50-5.90) M/uL Hgb (13.0-17.0) g/dL Hct (38.0-50.0) % MCV (80.0-98.0) fL MCH (27.0-32.0) pg MCHC (31.0-37.0) g/dL RDW Std Deviation (28.0-62.0) fl RDW Coeff of [place] (11.0-15.0) % Plt Count (150-400) K/uL MPV (7.40-12.00) fL Neut % (Auto) (48.0-80.0) % Lymph % (Auto) (16.0-40.0) % [place] % (Auto) (0.0-15.0) % Eos % (Auto) (0.0-7.0) % Baso % (Auto) (0.0-1.5) % Neut # (Auto) (1.4-5.7) K/uL Lymph # (Auto) (0.6-2.4) K/uL [place] # (Auto) (0.0-0.8) K/uL Eos # (Auto) (0.0-0.7) K/uL Baso # (Auto) (0.0-0.1) K/uL Nucleated RBC % /100WBC Nucleated RBCs # K/uL Sodium (136-148) mmol/L Potassium (3.5-5.1) mmol/L Chloride (98-107) mmol/L Carbon Dioxide (21.0-32.0) mmol/L BUN (7.0-18.0) mg/dL Creatinine (0.8-1.3) mg/dL Est Cr Clr Drug Dosing mL/min Estimated GFR (MDRD) ml/min Glucose (74-106) mg/dL Calcium (8.5-10.1) mg/dL Total Bilirubin (0.2-1.0) mg/dL AST (15-37) IU/L ALT (14-63) IU/L Alkaline Phosphatase (46-116) U/L Total Protein (6.4-8.2) g/dL Albumin (3.4-5.0) g/dL Globulin (2.6-4.0) g/dL Albumin/Globulin Ratio (0.9-1.6) Urine Color Urine Appearance Urine pH (5.0-8.0) Ur Specific [place] (1.001-1.035) Urine Protein (NEGATIVE) mg/dL Urine Glucose (UA) (NEGATIVE) mg/dL Urine Ketones (NEGATIVE) mg/dL Urine Occult Blood (NEGATIVE) Urine Nitrite (NEGATIVE) Urine Bilirubin (NEGATIVE) Urine Urobilinogen (<2.0) EU/dL Ur Leukocyte Esterase (NEGATIVE) Urine Opiates Screen NEGATIVE (NEGATIVE) Ur Oxycodone Screen NEGATIVE (NEGATIVE) Urine Methadone Screen NEGATIVE (NEGATIVE) Ur Barbiturates Screen NEGATIVE (NEGATIVE) Ur Phencyclidine Scrn NEGATIVE (NEGATIVE) Ur Amphetamine Screen NEGATIVE (NEGATIVE) U Methamphetamines Scrn POSITIVE (NEGATIVE) U Benzodiazepines Scrn NEGATIVE (NEGATIVE) U Cocaine Metab Screen NEGATIVE (NEGATIVE) U Marijuana (THC) Screen POSITIVE (NEGATIVE) Meds: Medications Discontinued Medications Generic Name Dose Route Start Last Admin Trade Name Migueq PRN Reason Stop Dose Admin Sodium Chloride 1,000 mls @ 999 mls/hr 10/15/19 19:11 10/15/19 19:35 Normal Saline IV 10/15/19 20:11 999 mls/hr .Bolus ONE Administration Departure - Departure Time of Disposition: 20:58 Disposition: Home, Self-Care 01 Condition: Good Clinical Impression: Drug abuse - Discharge Information Instructions: Substance Use Disorder and Mental Illness Forms: ED Department Discharge Sepsis Event Note - Evaluation Sepsis Screening Result: No Definite Risk - Focused Exam Vital Signs: Vital Signs Temp Pulse Resp BP Pulse Ox 10/15/19 19:08 98.1 F 137 H 22 H 187/98 H 93 L Date Exam was Performed: 10/15/19 Time Exam was Performed: 20:56
[2019-10-15 19:36] LABS: BLOOD UREA NITROGEN,BUN 12 mg/dL (7.0-18.0); CHLORIDE,CL 103 mmol/L (98-107); GLUCOSE RANDOM 105 mg/dL (74-106); POTASSIUM,K 3.5 mmol/L (3.5-5.1); SODIUM,NA 142 mmol/L (136-148)
[2019-10-15 21:16] VITALS: BP 173/93; PULSE 142
== END 2019-10-15 21:16 | disposition home or self-care (01) ==
LOC: MW.ED 19:03
DX: F19.10 Other psychoactive substance abuse, uncomplicated (principal); F17.210 Nicotine dependence, cigarettes, uncomplicated; Z88.8 Allergy status to other drugs, medicaments and biological substances
CPT/HCPCS: 36415; 80053; 80305; 81003; 85025; 96360; 99285; J7030

== ENCOUNTER 2021-03-20 18:56 | Emergency (ER) | payer OTHER ==
[2021-03-20 19:32] VITALS: BP 128/75; PULSE 70
== END 2021-03-20 20:50 | disposition left against medical advice (07) ==
LOC: MW.ED 18:56
DX: Z53.21 Procedure and treatment not carried out due to patient leaving prior to being seen by health care provider (principal)